=== PATIENT | male | born 1985 | race Caucasian/White ===

== ENCOUNTER 2019-01-03 08:34 | Inpatient (IN) | payer OTHER ==
[~2019-01-03] VITALS: Ht 162.6 cm; Wt 80.0 kg
--- NOTE | 2019-01-03 08:46 | NUR ---
[facility]ARI WAS CALLED BY COWORKED D/T PT EXPERIENCING "SEZIURE LIKE" ACTIVITY FOR "2-3 MINUTES." PER REPORT WHEN EMS ARRIVED TO SITE PT WAS POSTICTAL AND AGGRESSIVE. PT HAS NOT RECOLLECTION OF EVENT. DENIES HX OF SEIZURE. COWORKER STATED PT "MAY OF HIT HEAD ON CEMENT BLOCK." + INCONTIENCE. + HEAD PAIN. NO TRAUMA NOTED TO TONGUE. PT IS A [employer]. KINYARWANDA SPEAKING ONLY. [employer] TO BE USED. COWORKER AND ON WAY.
--- NOTE | 2019-01-03 09:20 | NUR ---
PT IN CT SCAN.
[2019-01-03 09:25] LABS: BASOPHILS # (AUTO) 0.03 x10^3/uL (0-0.1); BASOPHILS % (AUTO) 0 % (0-1); EOSINOPHILS # (AUTO) 0.14 x10^3/uL (0-0.4); EOSINOPHILS % (AUTO) 2 % (1-7); LYMPHOCYTES # (AUTO) 1.66 x10^3/uL (1-3.4); LYMPHOCYTES % (AUTO) 23 % (22-44); MD NO; MEAN CORPUSCULAR HEMOGLOBIN 28.5 pg (27.5-34.5); MEAN CORPUSCULAR HGB CONC 34.5 g/dL (33.2-36.2); MEAN CORPUSCULAR VOLUME 82.4 fL (81-97); MEAN PLATELET VOLUME 7.7 fL (7.4-10.4); MONOCYTES # (AUTO) 0.44 x10^3/uL (0.2-0.8); MONOCYTES % (AUTO) 6 % (2-9); NEUTROPHILS # (AUTO) 4.98 x10^3/uL (1.8-6.8); NEUTROPHILS % (AUTO) 69 % (42-75); PLATELET COUNT 266 x10^3/uL (130-400); RED CELL DISTRIBUTION WIDTH 13.1 % (9.4-14.8)
--- NOTE | 2019-01-03 09:35 | NUR ---
ERMD AT BEDSIDE EVALUATING PT.
[2019-01-03 09:36] LABS: ALANINE AMINOTRANSFERASE 20 U/L (12-78); ALBUMIN 3.1 g/dL (3.4-5.0); ANION GAP 6 mmol/L (5-15); CALCIUM 8.9 mg/dL (8.5-10.1); CHLORIDE 110 mmol/L (98-107)
[2019-01-03 09:38] LABS: ALKALINE PHOSPHATASE 142 U/L (45-117); BILIRUBIN,TOTAL 0.4 mg/dL (0.2-1.0); CREATININE 2.03 mg/dL (0.7-1.3); TOTAL PROTEIN 6.4 g/dL (6.4-8.2)
--- NOTE | 2019-01-03 09:47 | NUR ---
PIV ACCESS OBTAINED. 18 L AC.
--- NOTE | 2019-01-03 09:49 | NUR ---
REPORT TO MAI ORDOÑEZ TO ASSUME PRIMARY CARE OF PT.
[2019-01-03] MEDS ORDERED: SODIUM CHLORIDE FLUSH 10ML SYR IVF ONE (10:00)
--- NOTE | 2019-01-03 10:30 | NUR ---
PT TO MRI.
[2019-01-03] MEDS ORDERED: GADOBUTROL 10 MMOL/10 ML PFS ONE (10:43)
[2019-01-03] MEDS ORDERED: ACETAMINOPHEN 325 MG TABLET PO ONE (11:00)
[2019-01-03] MEDS ORDERED: ACETAMINOPHEN 325 MG TABLET ONE (11:03)
--- NOTE | 2019-01-03 11:13 | NUR ---
PT BACK FROM MRI. 3 P'S ADDRESSED. PT VOIDED. PT MEDICATED PER MD ORDER FOR LITTLE. VSS.
[2019-01-03] MEDS ORDERED: LEVETIRACETAM 500 MG TABLET PO SCH (12:00)
[2019-01-03] MEDS ORDERED: LEVETIRACETAM 500 MG TABLET ONE (12:16)
--- NOTE | 2019-01-03 12:38 | NUR ---
NEURO AT BEDSIDE. PT MEDICATED PER MD ORDERED. PT TO BE ADMITTED NOW RATHER THAN DC HOME.
[2019-01-03] MEDS ORDERED: SODIUM CHLORIDE FLUSH 10ML SYR IVF PRN (13:00)
[2019-01-03] MEDS ORDERED: ACETAMINOPHEN 325 MG TABLET PO PRN (13:00)
[2019-01-03] MEDS ORDERED: ONDANSETRON ODT 4 MG PO PRN (13:00)
--- NOTE | 2019-01-03 13:11 | NUR ---
PT REPORTS LITTLE IS BETTER AT 2/10 AFTER TYLENOL. REPORT CALLED TO [facility]. WAITING FOR TRANSPORT.
[2019-01-03] MEDS ORDERED: LOSA25TA25 PO (13:25)
[2019-01-03] MEDS ORDERED: PRED20TA PO (13:25)
[2019-01-03] MEDS ORDERED: CHOL500015 PO (13:25)
[2019-01-03] MEDS ORDERED: BUME1TAB21 PO (13:25)
[2019-01-03] MEDS ORDERED: OMEG1CAP23 PO (13:25)
[2019-01-03] MEDS ORDERED: MONT10TA9 PO (13:25)
[2019-01-03] MEDS ORDERED: GLIP5TAB10 PO (13:25)
[2019-01-03] MEDS ORDERED: HYDR4TAB PO (13:25)
[2019-01-03] MEDS ORDERED: METH750T87 PO (13:25)
[2019-01-03] MEDS ORDERED: DULO30CA2 PO (13:25)
[2019-01-03] MEDS ORDERED: GABA600T7 PO (13:25)
[2019-01-03] MEDS ORDERED: MORP15TA PO (13:25)
[2019-01-03] MEDS ORDERED: CARV3.122 PO (13:25)
[2019-01-03] MEDS ORDERED: MULT1TAB90 PO (13:25)
[2019-01-03] MEDS ORDERED: LEVO25TA4 PO (13:25)
[2019-01-03] MEDS ORDERED: IBUP-1222 PO (13:25)
[2019-01-03] MEDS ORDERED: FOLI-17 PO (13:25)
[2019-01-03] MEDS ORDERED: PANT40TA3 PO (13:25)
[2019-01-03] MEDS ORDERED: ESCI20TA PO (13:25)
[2019-01-03] MEDS ORDERED: ASPI-496 PO (13:25)
[2019-01-03] MEDS ORDERED: OMEGA 3 PO (13:25)
[2019-01-03] MEDS ORDERED: LEVETIRACETAM 500 MG TABLET PO ONE (13:30)
[2019-01-03] MEDS: SODIUM CHLORIDE 0.9% 1,000 ML IV SCH (14:26)
[2019-01-03] MEDS: LEVETIRACETAM 500 MG in SODIUM CHLORIDE 0.9% 100 ML IV SCH (14:26)
[2019-01-03] MEDS: NICOTINE 7 MG/24 HR PATCH.TD24 TD SCH (14:26)
[2019-01-03] MEDS: DEXAMETHASONE 4 MG/ML, 1ML IV SCH ×2 (14:26→21:44)
[2019-01-03 14:51] VITALS: BP 119/80
[2019-01-03 19:46] VITALS: BP 117/75
[2019-01-04 00:11] VITALS: BP 123/74
[2019-01-04] MEDS: LEVETIRACETAM 500 MG in SODIUM CHLORIDE 0.9% 100 ML IV SCH ×2 (02:25→13:48)
[2019-01-04] MEDS: DEXAMETHASONE 4 MG/ML, 1ML IV SCH ×3 (05:19→21:57)
[2019-01-04 05:31] LABS: CHLORIDE 111 mmol/L (98-107)
[2019-01-04 05:36] LABS: ANION GAP 8 mmol/L (5-15); CREATININE 2.06 mg/dL (0.7-1.3)
[2019-01-04 05:43] LABS: MEAN CORPUSCULAR HEMOGLOBIN 28.2 pg (27.5-34.5); MEAN CORPUSCULAR HGB CONC 34.3 g/dL (33.2-36.2); MEAN CORPUSCULAR VOLUME 82.3 fL (81-97); MEAN PLATELET VOLUME 8.2 fL (7.4-10.4); PLATELET COUNT 283 x10^3/uL (130-400); RED BLOOD COUNT 5.37 x10^6/uL (4.38-5.82); RED CELL DISTRIBUTION WIDTH 13.2 % (9.4-14.8)
[2019-01-04 06:15] LABS: BASOPHILS # (AUTO) 0.03 x10^3/uL (0-0.1); BASOPHILS % (AUTO) 0 % (0-1); EOSINOPHILS % (AUTO) 0 % (1-7); LYMPHOCYTES # (AUTO) 1.07 x10^3/uL (1-3.4); LYMPHOCYTES % (AUTO) 9 % (22-44); MD SCAN; MONOCYTES # (AUTO) 0.05 x10^3/uL (0.2-0.8); MONOCYTES % (AUTO) 0 % (2-9); NEUTROPHILS # (AUTO) 10.96 x10^3/uL (1.8-6.8); NEUTROPHILS % (AUTO) 91 % (42-75)
[2019-01-04 06:49] VITALS: BP 119/69
[2019-01-04] MEDS: SODIUM CHLORIDE 0.9% 1,000 ML IV SCH (10:00)
[2019-01-04] MEDS: NICOTINE 7 MG/24 HR PATCH.TD24 TD SCH (13:46)
[2019-01-04 14:04] VITALS: BP 119/69
[2019-01-04 20:05] VITALS: BP 133/83
[2019-01-05] MEDS: SODIUM CHLORIDE 0.9% 1,000 ML IV SCH ×2 (00:38→14:42)
[2019-01-05 01:00] VITALS: BP 130/69
[2019-01-05] MEDS: LEVETIRACETAM 500 MG in SODIUM CHLORIDE 0.9% 100 ML IV SCH (02:41)
[2019-01-05 03:44] LABS: MICROSCOPIC AUTO
[2019-01-05 05:20] LABS: ANION GAP 4 mmol/L (5-15); CALCIUM 8.4 mg/dL (8.5-10.1); CHLORIDE 113 mmol/L (98-107)
[2019-01-05 05:22] LABS: CREATININE 2.11 mg/dL (0.7-1.3)
[2019-01-05] MEDS: DEXAMETHASONE 4 MG/ML, 1ML IV SCH (05:26)
[2019-01-05 07:27] VITALS: BP 133/72
[2019-01-05] MEDS: DEXAMETHASONE 4 MG TABLET PO SCH ×2 (09:31→20:54)
[2019-01-05 13:30] VITALS: BP 123/70
[2019-01-05] MEDS: NICOTINE 7 MG/24 HR PATCH.TD24 TD SCH (14:00)
[2019-01-05 20:10] VITALS: BP 123/67
[2019-01-05] MEDS: LEVETIRACETAM 500 MG TABLET PO SCH (20:54)
[2019-01-06 00:14] VITALS: BP 145/79
[2019-01-06] MEDS: SODIUM CHLORIDE 0.9% 1,000 ML IV SCH ×2 (05:54→19:58)
[2019-01-06 07:38] VITALS: BP 131/76
[2019-01-06] MEDS: LEVETIRACETAM 500 MG TABLET PO SCH ×2 (07:38→19:58)
[2019-01-06] MEDS: DEXAMETHASONE 4 MG TABLET PO SCH ×2 (07:38→19:58)
[2019-01-06 13:17] VITALS: BP 134/86
[2019-01-06] MEDS ORDERED: PHARMACY INSTRUCTION MC SCH (14:00)
[2019-01-06] MEDS: NICOTINE 7 MG/24 HR PATCH.TD24 TD SCH (14:02)
[2019-01-06 19:39] VITALS: BP 150/89
[2019-01-07 01:25] VITALS: BP 154/88
[2019-01-07] MEDS: ONDANSETRON 2MG/ML, 2ML IVPush PRN ×2 (05:24→20:57)
[2019-01-07 06:06] LABS: BASOPHILS # (AUTO) 0.08 x10^3/uL (0-0.1); BASOPHILS % (AUTO) 1 % (0-1); EOSINOPHILS % (AUTO) 0 % (1-7); LYMPHOCYTES # (AUTO) 1.25 x10^3/uL (1-3.4); LYMPHOCYTES % (AUTO) 9 % (22-44); MD NO; MEAN CORPUSCULAR HEMOGLOBIN 28.8 pg (27.5-34.5); MEAN CORPUSCULAR HGB CONC 34.8 g/dL (33.2-36.2); MEAN CORPUSCULAR VOLUME 82.7 fL (81-97); MEAN PLATELET VOLUME 8.2 fL (7.4-10.4); MONOCYTES # (AUTO) 0.67 x10^3/uL (0.2-0.8); MONOCYTES % (AUTO) 5 % (2-9); NEUTROPHILS # (AUTO) 12.06 x10^3/uL (1.8-6.8); NEUTROPHILS % (AUTO) 86 % (42-75); PLATELET COUNT 276 x10^3/uL (130-400); RED BLOOD COUNT 5.44 x10^6/uL (4.38-5.82); RED CELL DISTRIBUTION WIDTH 12.9 % (9.4-14.8)
[2019-01-07 06:20] LABS: CALCIUM 8.3 mg/dL (8.5-10.1); CHLORIDE 108 mmol/L (98-107)
[2019-01-07 06:25] LABS: ALANINE AMINOTRANSFERASE 72 U/L (12-78); ALBUMIN 2.9 g/dL (3.4-5.0); ALKALINE PHOSPHATASE 113 U/L (45-117); ANION GAP 7 mmol/L (5-15); BILIRUBIN,TOTAL 0.5 mg/dL (0.2-1.0); CREATININE 1.76 mg/dL (0.7-1.3); TOTAL PROTEIN 6.2 g/dL (6.4-8.2)
[2019-01-07 06:59] VITALS: BP 134/87
[2019-01-07] MEDS: LEVETIRACETAM 500 MG TABLET PO SCH ×2 (08:18→20:57)
[2019-01-07] MEDS: DEXAMETHASONE 4 MG TABLET PO SCH ×2 (08:19→20:57)
[2019-01-07] MEDS: SODIUM CHLORIDE 0.9% 1,000 ML IV SCH ×2 (08:23→20:57)
[2019-01-07 13:08] VITALS: BP 153/93
[2019-01-07] MEDS: NICOTINE 7 MG/24 HR PATCH.TD24 TD SCH (13:57)
[2019-01-07 18:58] VITALS: BP 135/84
[2019-01-08 05:31] LABS: INTERNATIONAL NORMALIZED RATIO 1.02 (0.93-1.1); PROTHROMBIN TIME 10.7 Seconds (9.6-11.5)
[2019-01-08 05:32] VITALS: BP 114/68
[2019-01-08] MEDS ORDERED: FUROSEMIDE 20 MG/2 ML ONE (05:46)
[2019-01-08] MEDS ORDERED: MIDAZOLAM 1 MG/ML, 2ML ONE ×2 (06:50→09:56)
[2019-01-08] MEDS ORDERED: FENTANYL PF 250 MCG/5ML ONE ×3 (06:50→11:34)
[2019-01-08] MEDS ORDERED: GADOBUTROL 10 MMOL/10 ML PFS ONE (08:26)
[2019-01-08] MEDS ORDERED: THROMBIN 20,000 UNIT VIAL TP ONE (08:49)
[2019-01-08] MEDS ORDERED: BUPIVACAINE/PF-EPI 0.5% 1:200K ONE (08:49)
[2019-01-08] MEDS ORDERED: BACITRACIN 50,000 UNIT ONE (08:50)
[2019-01-08] MEDS: DEXAMETHASONE 4 MG TABLET PO SCH ×2 (09:00→21:03)
[2019-01-08] MEDS: LEVETIRACETAM 500 MG TABLET PO SCH ×2 (09:00→21:03)
[2019-01-08] MEDS ORDERED: ACETAMINOPHEN 325 MG TABLET PO PRN (09:30)
[2019-01-08] MEDS ORDERED: LABETALOL 5MG/ML, 20ML IV PRN (09:30)
[2019-01-08] MEDS ORDERED: OXYcodone 5 MG/5 ML ORAL.SOL UDC PO PRN (09:30)
[2019-01-08] MEDS ORDERED: ONDANSETRON 2MG/ML, 2ML IV PRN (09:30)
[2019-01-08] MEDS ORDERED: MEPERIDINE/PF 25MG/0.5ML IVPush PRN (09:30)
[2019-01-08] MEDS ORDERED: PROPOFOL 50 ML ONE ×4 (09:54→12:29)
[2019-01-08] MEDS ORDERED: DEXAMETHASONE 4 MG/ML, 5ML ONE (09:57)
[2019-01-08] MEDS ORDERED: LABETALOL 20 MG/4 ML ONE (09:57)
[2019-01-08] MEDS ORDERED: CEFAZOLIN 1,000 MG ONE (09:57)
[2019-01-08] MEDS ORDERED: ROCURONIUM 10 MG/ML,10ML ONE (09:57)
[2019-01-08] MEDS ORDERED: ONDANSETRON 2MG/ML, 2ML ONE (09:57)
[2019-01-08] MEDS ORDERED: NEOSPORIN OINT. PKT 1 PACKET ONE ×2 (13:38→13:39)
[2019-01-08] MEDS ORDERED: FENTANYL PF 100 MCG/2ML ONE (14:04)
[2019-01-08] MEDS: SODIUM CHLORIDE 0.9% 1,000 ML IV SCH ×2 (14:06→19:38)
[2019-01-08] MEDS: FENTANYL PF 100 MCG/2ML IV PRN ×2 (14:06→14:25)
[2019-01-08] MEDS ORDERED: HYDROmorphone 1 MG/ML, 1ML ONE (14:52)
[2019-01-08] MEDS: HYDROmorphone 2 MG/ML, 1ML IVPush PRN ×2 (14:57→15:37)
[2019-01-08] MEDS ORDERED: NITROPRUSSIDE 50 MG in DEXTROSE 5% 248 ML IV PRN (18:00)
[2019-01-08] MEDS: NICOTINE 7 MG/24 HR PATCH.TD24 TD SCH (18:00)
[2019-01-08] MEDS: MORPHINE SULFATE 4 MG/ML, 1ML IVPush PRN ×2 (18:15→23:08)
[2019-01-08] MEDS: CEFAZOLIN 2,000 MG in SODIUM CHLORIDE 0.9% 50 ML IV SCH (19:38)
[2019-01-09] MEDS: CEFAZOLIN 2,000 MG in SODIUM CHLORIDE 0.9% 50 ML IV SCH ×2 (03:44→11:01)
[2019-01-09] MEDS: MORPHINE SULFATE 4 MG/ML, 1ML IVPush PRN ×2 (03:50→11:47)
[2019-01-09 04:00] VITALS: BP_SYST 123; BP_SYST 137; BP_DIAS 80; BP_DIAS 86
[2019-01-09 05:49] LABS: ALBUMIN 2.5 g/dL (3.4-5.0); ANION GAP 8 mmol/L (5-15); CHLORIDE 105 mmol/L (98-107)
[2019-01-09 05:54] LABS: ALANINE AMINOTRANSFERASE 49 U/L (12-78); ALKALINE PHOSPHATASE 102 U/L (45-117); BILIRUBIN,TOTAL 0.6 mg/dL (0.2-1.0); CREATININE 2.22 mg/dL (0.7-1.3); MEAN CORPUSCULAR HEMOGLOBIN 28.6 pg (27.5-34.5); MEAN CORPUSCULAR VOLUME 84.1 fL (81-97); MEAN PLATELET VOLUME 8.2 fL (7.4-10.4); PLATELET COUNT 253 x10^3/uL (130-400); RED BLOOD COUNT 4.81 x10^6/uL (4.38-5.82); RED CELL DISTRIBUTION WIDTH 13.3 % (9.4-14.8); TOTAL PROTEIN 5.3 g/dL (6.4-8.2)
[2019-01-09 06:27] LABS: BASOPHILS # (AUTO) 0.04 x10^3/uL (0-0.1); BASOPHILS % (AUTO) 0 % (0-1); EOSINOPHILS % (AUTO) 0 % (1-7); LYMPHOCYTES # (AUTO) 0.94 x10^3/uL (1-3.4); LYMPHOCYTES % (AUTO) 5 % (22-44); MD SCAN; MONOCYTES # (AUTO) 1.02 x10^3/uL (0.2-0.8); MONOCYTES % (AUTO) 6 % (2-9); NEUTROPHILS # (AUTO) 16.07 x10^3/uL (1.8-6.8); NEUTROPHILS % (AUTO) 89 % (42-75)
[2019-01-09] MEDS: DEXAMETHASONE 4 MG TABLET PO SCH ×2 (09:11→20:59)
[2019-01-09] MEDS: LEVETIRACETAM 500 MG TABLET PO SCH ×2 (09:11→20:59)
[2019-01-09] MEDS ORDERED: GADOBUTROL 7.5 MMOL/7.5 ML PFS ONE (09:58)
[2019-01-09] MEDS ORDERED: PHARMACY MAY ADJ FOR RENAL FX MC PRN (13:30)
[2019-01-09 14:54] VITALS: BP 126/78
[2019-01-09] MEDS: SODIUM CHLORIDE 0.9% 1,000 ML IV SCH (17:34)
[2019-01-09] MEDS: NICOTINE 7 MG/24 HR PATCH.TD24 TD SCH (17:34)
[2019-01-09] MEDS: OXYcodone/APAP 10/325MG TABLET PO PRN (17:35)
[2019-01-09 19:43] VITALS: BP 117/73
[2019-01-10] MEDS: OXYcodone/APAP 10/325MG TABLET PO PRN ×5 (00:21→20:32)
[2019-01-10 00:55] VITALS: BP 176/84
[2019-01-10 07:10] VITALS: BP 121/77
[2019-01-10] MEDS: DEXAMETHASONE 4 MG TABLET PO SCH ×2 (08:00→20:32)
[2019-01-10] MEDS: LEVETIRACETAM 500 MG TABLET PO SCH ×2 (08:00→20:32)
[2019-01-10] MEDS: SODIUM CHLORIDE 0.9% 1,000 ML IV SCH ×2 (08:06→20:32)
[2019-01-10 08:32] LABS: ANION GAP 5 mmol/L (5-15); CHLORIDE 105 mmol/L (98-107); CREATININE 1.83 mg/dL (0.7-1.3)
[2019-01-10 12:10] VITALS: BP 108/67
[2019-01-10 16:15] VITALS: BP 126/80
[2019-01-10] MEDS ORDERED: GADOBUTROL 7.5 MMOL/7.5 ML PFS ONE (17:12)
[2019-01-10] MEDS ORDERED: POLYETHYLENE GLYCOL 17 GM PACKET ONE (17:56)
[2019-01-10] MEDS ORDERED: SENNA/DOCUSATE TABLET ONE (17:56)
[2019-01-10] MEDS: POLYETHYLENE GLYCOL 17 GM PACKET PO PRN (17:59)
[2019-01-10] MEDS: SENNA/DOCUSATE TABLET PO PRN (17:59)
[2019-01-10] MEDS: NICOTINE 7 MG/24 HR PATCH.TD24 TD SCH (17:59)
[2019-01-10 19:08] LABS: TROPONIN I < 0.015 ng/mL (0.000-0.045)
[2019-01-10 19:37] VITALS: BP 136/85
[2019-01-11 00:52] VITALS: BP 120/74
[2019-01-11 01:01] LABS: TROPONIN I < 0.015 ng/mL (0.000-0.045)
[2019-01-11 05:49] LABS: MEAN CORPUSCULAR HEMOGLOBIN 28.6 pg (27.5-34.5); MEAN CORPUSCULAR HGB CONC 34.4 g/dL (33.2-36.2); MEAN CORPUSCULAR VOLUME 83.1 fL (81-97); PLATELET COUNT 232 x10^3/uL (130-400); RED BLOOD COUNT 4.58 x10^6/uL (4.38-5.82); RED CELL DISTRIBUTION WIDTH 13.4 % (9.4-14.8)
[2019-01-11 05:55] LABS: ALANINE AMINOTRANSFERASE 33 U/L (12-78); ALBUMIN 2.3 g/dL (3.4-5.0); ANION GAP 7 mmol/L (5-15); CALCIUM 7.9 mg/dL (8.5-10.1); CHLORIDE 106 mmol/L (98-107); CREATININE 1.61 mg/dL (0.7-1.3)
[2019-01-11 06:00] LABS: ALKALINE PHOSPHATASE 91 U/L (45-117); BILIRUBIN,TOTAL 0.4 mg/dL (0.2-1.0); TOTAL PROTEIN 5.5 g/dL (6.4-8.2); TROPONIN I < 0.015 ng/mL (0.000-0.045)
[2019-01-11] MEDS: SODIUM CHLORIDE 0.9% 1,000 ML IV SCH ×3 (06:02→20:57)
[2019-01-11 06:48] LABS: BASOPHILS % (AUTO) 0 % (0-1); EOSINOPHILS # (AUTO) 0.01 x10^3/uL (0-0.4); EOSINOPHILS % (AUTO) 0 % (1-7); LYMPHOCYTES # (AUTO) 1.08 x10^3/uL (1-3.4); LYMPHOCYTES % (AUTO) 7 % (22-44); MD SCAN; MONOCYTES # (AUTO) 0.96 x10^3/uL (0.2-0.8); MONOCYTES % (AUTO) 6 % (2-9); NEUTROPHILS # (AUTO) 13.01 x10^3/uL (1.8-6.8); NEUTROPHILS % (AUTO) 86 % (42-75)
[2019-01-11 07:55] VITALS: BP 120/68
[2019-01-11] MEDS: DEXAMETHASONE 4 MG TABLET PO SCH ×3 (08:12→20:56)
[2019-01-11] MEDS: LEVETIRACETAM 500 MG TABLET PO SCH ×2 (08:12→20:56)
[2019-01-11] MEDS: SENNA/DOCUSATE TABLET PO PRN (08:12)
[2019-01-11] MEDS: OXYcodone/APAP 10/325MG TABLET PO PRN ×4 (08:12→20:55)
[2019-01-11 13:11] VITALS: BP 129/77
[2019-01-11] MEDS: NICOTINE 7 MG/24 HR PATCH.TD24 TD SCH (17:34)
[2019-01-11 19:27] VITALS: BP 128/74
[2019-01-11] MEDS: POLYETHYLENE GLYCOL 17 GM PACKET PO PRN (20:56)
[2019-01-12 02:13] VITALS: BP 121/68
[2019-01-12] MEDS: SODIUM CHLORIDE 0.9% 1,000 ML IV SCH ×3 (04:52→19:58)
[2019-01-12] MEDS: OXYcodone/APAP 10/325MG TABLET PO PRN ×2 (06:04→19:58)
[2019-01-12 07:16] VITALS: BP 91/59
[2019-01-12] MEDS: MAGNESIUM HYDROXIDE 8%, 30ML UDC PO SCH (09:00)
[2019-01-12 09:43] LABS: ALANINE AMINOTRANSFERASE 54 U/L (12-78); ALBUMIN 2.4 g/dL (3.4-5.0); ANION GAP 3 mmol/L (5-15); CALCIUM 8.1 mg/dL (8.5-10.1); CHLORIDE 106 mmol/L (98-107); CREATININE 1.72 mg/dL (0.7-1.3)
[2019-01-12 09:45] LABS: ALKALINE PHOSPHATASE 100 U/L (45-117); BILIRUBIN,TOTAL 0.4 mg/dL (0.2-1.0); TOTAL PROTEIN 5.7 g/dL (6.4-8.2)
[2019-01-12] MEDS ORDERED: MAGNESIUM CITRATE 300ML ORAL SOL PO ONE (10:30)
[2019-01-12] MEDS ORDERED: MAGNESIUM CITRATE 300ML ORAL SOL ONE (10:32)
[2019-01-12] MEDS: DEXAMETHASONE 4 MG TABLET PO SCH ×3 (11:34→23:53)
[2019-01-12] MEDS: LEVETIRACETAM 500 MG TABLET PO SCH ×2 (11:34→22:11)
[2019-01-12 14:00] VITALS: BP 135/74
[2019-01-12 18:40] VITALS: BP 119/68
[2019-01-12] MEDS: NICOTINE 7 MG/24 HR PATCH.TD24 TD SCH (18:55)
[2019-01-13 02:08] VITALS: BP 126/77
[2019-01-13] MEDS: SODIUM CHLORIDE 0.9% 1,000 ML IV SCH (04:52)
[2019-01-13] MEDS: OXYcodone/APAP 10/325MG TABLET PO PRN ×2 (05:46→12:50)
[2019-01-13] MEDS: MAGNESIUM HYDROXIDE 8%, 30ML UDC PO SCH (08:52)
[2019-01-13] MEDS: LEVETIRACETAM 500 MG TABLET PO SCH (09:03)
[2019-01-13] MEDS: DEXAMETHASONE 4 MG TABLET PO SCH ×2 (09:04→16:44)
[2019-01-13 09:35] VITALS: BP 131/76
[2019-01-13] MEDS ORDERED: DEXA4TAB66 PO (13:39)
[2019-01-13] MEDS ORDERED: LEVE500T53 PO (13:39)
== END 2019-01-13 18:11 | disposition home or self-care (01) | DRG 26 ==
LOC: ED 09:38 → EDIP 12:36 → 4EST 13:51 → 4WST 01-07 20:41 → CCU 01-08 14:16 → 4WST 01-09 14:18
PROVIDERS: ADMIT Internal Medicine; ATTEND Internal Medicine
PROC: 00B20ZZ Excision of Dura Mater, Open Approach (ICD-10-PCS; 2019-01-08)
PROC: 00U20KZ Supplement Dura Mater with Nonautologous Tissue Substitute, Open Approach (ICD-10-PCS; 2019-01-08)
PROC: 03HY32Z Insertion of Monitoring Device into Upper Artery, Percutaneous Approach (ICD-10-PCS; 2019-01-08)
PROC: 00B00ZZ Excision of Brain, Open Approach (ICD-10-PCS; principal; 2019-01-08 09:30)
DX: D32.0 Benign neoplasm of cerebral meninges (principal); N17.9 Acute kidney failure, unspecified; E66.9 Obesity, unspecified; F17.210 Nicotine dependence, cigarettes, uncomplicated; N18.3 Chronic kidney disease, stage 3 (moderate); T38.0X5A Adverse effect of glucocorticoids and synthetic analogues, initial encounter; M10.9 Gout, unspecified; Z23 Encounter for immunization; Z68.30 Body mass index [BMI] 30.0-30.9, adult
CPT/HCPCS: 36415; 70450; 70553; 76770; 80048; 80053; 81001; 83735; 84100; 84132; 84484; 85025; 85610; 85730; 86850; 86900; 87081; 88307; 88331; 90656; 93005; A9585; C1713; G0378; J0690; J1100; J1170; J1953; J2250; J2405; J2704; J3010; 92523-GN; A4648; C1781; J1940; J3490; J7030; J7050

== ENCOUNTER 2019-01-17 11:24 | Inpatient (IN) | payer BC, OTHER ==
[~2019-01-17] VITALS: Ht 167.6 cm; Wt 78.2 kg
[~2019-01-17 11:24] MED LIST: ASPI-496 PO; BUME1TAB21 PO; CARV3.122 PO; CHOL500015 PO; DEXA4TAB66 PO; DULO30CA2 PO; ESCI20TA PO; FOLI-17 PO; GABA600T7 PO; GLIP5TAB10 PO; HYDR4TAB PO; IBUP-1222 PO; LEVE500T53 PO; LEVO25TA4 PO; LOSA25TA25 PO; METH750T87 PO; MONT10TA9 PO; MORP15TA PO; MULT1TAB90 PO; OMEG1CAP23 PO; OMEGA 3 PO; PANT40TA3 PO; PRED20TA PO
[2019-01-17] MEDS ORDERED: MAALOX/HYOSCYAMINE/LIDOCAINE 45 ML BTL PO ONE (12:00)
[2019-01-17 13:05] LABS: MEAN CORPUSCULAR HEMOGLOBIN 28.5 pg (27.5-34.5); MEAN CORPUSCULAR HGB CONC 33.5 g/dL (33.2-36.2); MEAN CORPUSCULAR VOLUME 84.9 fL (81-97); MEAN PLATELET VOLUME 8.1 fL (7.4-10.4); PLATELET COUNT 312 x10^3/uL (130-400); RED BLOOD COUNT 4.71 x10^6/uL (4.38-5.82); RED CELL DISTRIBUTION WIDTH 14.2 % (9.4-14.8)
[2019-01-17 13:06] LABS: ALANINE AMINOTRANSFERASE 131 U/L (12-78); ALBUMIN 2.6 g/dL (3.4-5.0); ANION GAP 10 mmol/L (5-15); CHLORIDE 106 mmol/L (98-107); CREATININE 2.52 mg/dL (0.7-1.3)
[2019-01-17 13:08] LABS: ALKALINE PHOSPHATASE 130 U/L (45-117); BILIRUBIN,TOTAL 0.3 mg/dL (0.2-1.0); TOTAL PROTEIN 5.8 g/dL (6.4-8.2)
[2019-01-17 14:02] LABS: MD YES
[2019-01-17 14:04] LABS: BAND#(MANUAL) 0.93 x10^3/uL; BANDS%(MANUAL) 3 % (0-7); LYMPH#(MANUAL) 0.31 x10^3/uL (1-3.4); LYMPHS% (MANUAL) 1 % (22-44); METAMYELOCYTES# (MANUAL) 0.62 x10^3/uL (0-0); METAMYELOCYTES% (MANUAL) 2 % (0-1); REACTIVE LYMPHS # (MANUAL) 0.31 x10^3/uL (0-0); REACTIVE LYMPHS % (MANUAL) 1 % (0-0)
[2019-01-17 14:05] LABS: MONOS#(MANUAL) 1.86 x10^3/uL (0.3-2.7); MONOS% (MANUAL) 6 % (2-9); SEG#(MANUAL) 26.97 x10^3/uL (1.8-6.8); SEGS% (MANUAL) 87 % (42-75)
--- NOTE | 2019-01-17 14:06 | NUR ---
pt to room from lobby
[2019-01-17] MEDS ORDERED: ONDANSETRON 2MG/ML, 2ML ONE (14:07)
[2019-01-17] MEDS ORDERED: MORPHINE SULFATE 4 MG/ML, 1ML ONE (14:07)
[2019-01-17 14:08] LABS: <PLATELET ESTIMATE> ADEQUATE; <PLT MORPHOLOGY> NORMAL PLT MORPH; POLYCHROMASIA 1+
[2019-01-17] MEDS ORDERED: SODIUM CHLORIDE 0.9% 1,000ML IVBOLUS ONE (14:30)
--- NOTE | 2019-01-17 15:00 | NUR ---
IV STARTED AND PT MEDICATED, PT TO US. S/O AT BEDSIDE. NAD, VSS
[2019-01-17] MEDS ORDERED: DEXA4TAB66 PO (16:03)
[2019-01-17] MEDS ORDERED: MAALOX/HYOSCYAMINE/LIDOCAINE 45 ML BTL ONE (16:04)
--- NOTE | 2019-01-17 16:10 | NUR ---
UA SENT TO LAB, PT RESTING IN [facility], AT BEDSIDE. TOMMY, MJ. WCTM
[2019-01-17 16:52] LABS: MICROSCOPIC AUTO
[2019-01-17 17:03] LABS: CULTURE INDICATED? NO
[2019-01-17] MEDS ORDERED: hydrALAzine 20 MG/ML, 1ML IVPush PRN (17:30)
[2019-01-17] MEDS ORDERED: ACETAMINOPHEN 325 MG TABLET PO PRN (17:30)
[2019-01-17] MEDS ORDERED: TEMAZEPAM 15 MG CAPSULE PO PRN (17:30)
[2019-01-17] MEDS ORDERED: ONDANSETRON 2MG/ML, 2ML IVPush PRN (17:30)
[2019-01-17] MEDS ORDERED: ONDANSETRON ODT 4 MG PO PRN (17:30)
--- NOTE | 2019-01-17 17:52 | NUR ---
ATTEMPTED TO CALL REPORT, RN TO CALL BACK
[2019-01-17 18:22] LABS: HCT (SEDRATE) 36.7 % (39.2-51.8)
[2019-01-17 18:30] LABS: FREE T4 (FREE THYROXINE) 0.72 ng/dL (0.76-1.46); THYROID STIMULATING HORMONE 0.26 mIU/L (0.358-3.740)
[2019-01-17 18:52] LABS: HEMOGLOBIN A1C 4.9 % (4.2-6.3)
[2019-01-17 19:31] VITALS: BP 144/83
[2019-01-17] MEDS: LACTATED RINGERS 1,000 ML IV SCH (19:40)
[2019-01-17] MEDS: AMOXICILLIN 500 MG CAPSULE PO SCH (20:31)
[2019-01-17] MEDS: DEXAMETHASONE 4 MG TABLET PO SCH (20:31)
[2019-01-17] MEDS: OMEPRAZOLE 20 MG CAPSULE.DR PO SCH (20:31)
[2019-01-17] MEDS: NICOTINE 21 MG/24 HR PATCH.TD24 TD SCH (20:31)
[2019-01-17] MEDS: CLARITHROMYCIN 500 MG TABLET PO SCH (20:31)
[2019-01-17] MEDS: INSULIN LISPRO 100 UNITS/ML, PEN SQ-INSULIN SCH (20:35)
[2019-01-18 00:51] VITALS: BP 120/67
[2019-01-18] MEDS: LACTATED RINGERS 1,000 ML IV SCH ×3 (03:03→19:43)
[2019-01-18 05:34] LABS: HCT (SEDRATE) 36.1 % (39.2-51.8)
[2019-01-18 05:39] LABS: MEAN CORPUSCULAR HEMOGLOBIN 29.5 pg (27.5-34.5); MEAN CORPUSCULAR HGB CONC 34.6 g/dL (33.2-36.2); MEAN CORPUSCULAR VOLUME 85.3 fL (81-97); MEAN PLATELET VOLUME 8.1 fL (7.4-10.4); PLATELET COUNT 231 x10^3/uL (130-400); RED BLOOD COUNT 4.21 x10^6/uL (4.38-5.82); RED CELL DISTRIBUTION WIDTH 14.5 % (9.4-14.8)
[2019-01-18 05:49] LABS: ANION GAP 5 mmol/L (5-15); CALCIUM 7.9 mg/dL (8.5-10.1); CHLORIDE 103 mmol/L (98-107)
[2019-01-18 05:54] LABS: C-REACTIVE PROTEIN, QUANT 0.05 mg/dL (0.02-0.49); CHOL/HDL RATIO 3.4; CHOLESTEROL, TOTAL 192 mg/dL (140-239); HDL CHOL % 30 % (26-37); HDL CHOLESTEROL (DIRECT) 57 mg/dL (40-60); LDL CHOLESTEROL,CALCULATED 97 mg/dL (54-169); LDL/HDL RATIO 1.7 (0.5-3.0); TRIGLYCERIDES 192 mg/dL (50-200); VLDL CHOLESTEROL 38 mg/dL (0-25)
[2019-01-18] MEDS: INSULIN LISPRO 100 UNITS/ML, PEN SQ-INSULIN SCH ×4 (06:15→21:00)
[2019-01-18 07:40] VITALS: BP 117/64
[2019-01-18 07:48] LABS: MD YES
[2019-01-18 07:49] LABS: LYMPH#(MANUAL) 0.88 x10^3/uL (1-3.4); LYMPHS% (MANUAL) 4 % (22-44); MONOS% (MANUAL) 5 % (2-9); MYELOCYTES# (MANUAL) 0.22 x10^3/uL (0-0); MYELOCYTES% (MANUAL) 1 % (0-0); SEG#(MANUAL) 19.71 x10^3/uL (1.8-6.8); SEGS% (MANUAL) 90 % (42-75)
[2019-01-18 07:50] LABS: <PLATELET ESTIMATE> ADEQUATE; <PLT MORPHOLOGY> NORMAL PLT MORPH; <RBC MORPHOLOGY> NORMAL
[2019-01-18] MEDS: AMOXICILLIN 500 MG CAPSULE PO SCH ×2 (09:28→19:44)
[2019-01-18] MEDS: DEXAMETHASONE 4 MG TABLET PO SCH ×3 (09:28→19:43)
[2019-01-18] MEDS: CLARITHROMYCIN 500 MG TABLET PO SCH ×2 (09:28→19:44)
[2019-01-18] MEDS: OMEPRAZOLE 20 MG CAPSULE.DR PO SCH ×2 (09:28→19:43)
[2019-01-18 13:50] VITALS: BP 133/78
[2019-01-18 19:49] VITALS: BP 126/65
[2019-01-18] MEDS: NICOTINE 21 MG/24 HR PATCH.TD24 TD SCH (22:19)
[2019-01-19 02:03] VITALS: BP 135/60
[2019-01-19] MEDS: LACTATED RINGERS 1,000 ML IV SCH ×2 (02:55→11:00)
[2019-01-19 05:35] LABS: MEAN CORPUSCULAR HEMOGLOBIN 29.5 pg (27.5-34.5); MEAN CORPUSCULAR HGB CONC 34.6 g/dL (33.2-36.2); MEAN CORPUSCULAR VOLUME 85.2 fL (81-97); MEAN PLATELET VOLUME 8.1 fL (7.4-10.4); PLATELET COUNT 248 x10^3/uL (130-400); RED BLOOD COUNT 4.35 x10^6/uL (4.38-5.82); RED CELL DISTRIBUTION WIDTH 14.5 % (9.4-14.8)
[2019-01-19 05:46] LABS: ANION GAP 10 mmol/L (5-15); CALCIUM 8.3 mg/dL (8.5-10.1); CHLORIDE 106 mmol/L (98-107); CREATININE 1.77 mg/dL (0.7-1.3)
[2019-01-19] MEDS: INSULIN LISPRO 100 UNITS/ML, PEN SQ-INSULIN SCH ×2 (06:20→11:00)
[2019-01-19 07:40] VITALS: BP 131/76
[2019-01-19 07:44] LABS: MD YES
[2019-01-19 07:45] LABS: BAND#(MANUAL) 0.42 x10^3/uL; BANDS%(MANUAL) 2 % (0-7); METAMYELOCYTES# (MANUAL) 0.21 x10^3/uL (0-0); METAMYELOCYTES% (MANUAL) 1 % (0-1); MONOS#(MANUAL) 0.83 x10^3/uL (0.3-2.7); MONOS% (MANUAL) 4 % (2-9); MYELOCYTES# (MANUAL) 0.42 x10^3/uL (0-0); MYELOCYTES% (MANUAL) 2 % (0-0); SEG#(MANUAL) 18.93 x10^3/uL (1.8-6.8); SEGS% (MANUAL) 91 % (42-75)
[2019-01-19 07:46] LABS: <PLATELET ESTIMATE> ADEQUATE; <PLT MORPHOLOGY> NORMAL PLT MORPH; <RBC MORPHOLOGY> NORMAL
[2019-01-19] MEDS: CLARITHROMYCIN 500 MG TABLET PO SCH (08:39)
[2019-01-19] MEDS: AMOXICILLIN 500 MG CAPSULE PO SCH (08:39)
[2019-01-19] MEDS: DEXAMETHASONE 4 MG TABLET PO SCH (08:39)
[2019-01-19] MEDS: OMEPRAZOLE 20 MG CAPSULE.DR PO SCH (08:39)
[2019-01-19 14:00] VITALS: BP 125/69
[2019-01-19] MEDS ORDERED: CLAR500T PO (15:06)
[2019-01-19] MEDS ORDERED: AMOX-291 PO (15:06)
[2019-01-19] MEDS ORDERED: OMEP-110 PO (15:06)
== END 2019-01-19 16:25 | disposition home or self-care (01) | DRG 384 ==
LOC: ED 14:39 → EDIP 17:18 → 4NOR 18:24 → DCLOUNGE 01-19 16:00
PROVIDERS: ADMIT Internal Medicine; ATTEND Internal Medicine
DX: K25.9 Gastric ulcer, unspecified as acute or chronic, without hemorrhage or perforation (principal); N17.9 Acute kidney failure, unspecified; M10.9 Gout, unspecified; D32.9 Benign neoplasm of meninges, unspecified; E86.0 Dehydration; B96.81 Helicobacter pylori [H. pylori] as the cause of diseases classified elsewhere; D72.829 Elevated white blood cell count, unspecified; N18.9 Chronic kidney disease, unspecified; Z86.011 Personal history of benign neoplasm of the brain; Z87.891 Personal history of nicotine dependence; Z87.11 Personal history of peptic ulcer disease
CPT/HCPCS: 36415; 74176; 76700; 80048; 80053; 80061; 81001; 82962; 83036; 83605; 83690; 84439; 84443; 85025; 85651; 86140; 86677; 87040; 99285; G0378; J7030; J7120